=== PATIENT | female | born 1990 | race American Indian/Alaskan Native ===

== ENCOUNTER 2017-02-07 01:11 | Inpatient (IN) | payer BC ==
[~2017-02-07] VITALS: Ht 154.9 cm; Wt 74.1 kg
[2017-02-07 01:49] VITALS: BP 125/73
[2017-02-07 02:35] LABS: AMNI OBC PASS; AMNISURE POSITIVE (NEGATIVE)
[2017-02-07] MEDS ORDERED: D5%-LACTATED RINGERS 1,000 ML IV SCH (02:40)
[2017-02-07] MEDS ORDERED: OXYTOCIN 30U/ 0.9% NaCL 500ML 500 ML IV ONE (02:40)
[2017-02-07] MEDS ORDERED: LACTATED RINGERS 1,000 ML IV SCH (02:40)
[2017-02-07] MEDS ORDERED: LIDOCAINE 1%, 20ML ONE (02:42)
[2017-02-07] MEDS ORDERED: MISOPROSTOL 200 MCG TABLET ONE (02:42)
[2017-02-07] MEDS ORDERED: NEWBORN KIT ONE (02:42)
[2017-02-07] MEDS ORDERED: OXYTOCIN 30U/ 0.9% NaCL 500ML 500 ML ONE (02:43)
[2017-02-07] MEDS ORDERED: TERBUTALINE 1 MG/ML, 1ML IVPush PRN ×2 (03:00)
[2017-02-07] MEDS ORDERED: ONDANSETRON 2MG/ML, 2ML IVPush PRN (03:00)
[2017-02-07] MEDS ORDERED: METOCLOPRAMIDE 5 MG/ML, 2ML IVPush PRN (03:00)
[2017-02-07] MEDS ORDERED: FENTANYL PF 100 MCG/2ML IVPush PRN (03:00)
[2017-02-07] MEDS ORDERED: CALCIUM CARBONATE 500 MG TAB.CHEW PO PRN (03:00)
[2017-02-07] MEDS ORDERED: SODIUM CITRATE/CITRIC ACID 30 ML UDC PO PRN (03:00)
[2017-02-07] MEDS ORDERED: FENTANYL PF 100 MCG/2ML IV PRN (03:00)
[2017-02-07 03:11] LABS: HEMATOCRIT 39.7 % (34.6-47.8); HEMOGLOBIN 13.3 g/dL (11.7-16.4); WHITE BLOOD COUNT 12.5 x10^3/uL (3.4-10)
[2017-02-07] MEDS: OXYTOCIN 30U/ 0.9% NaCL 500ML 500 ML IV SCH ×2 (10:55→20:55)
[2017-02-07] MEDS ORDERED: MISOPROSTOL 200 MCG TABLET PO PRN (11:00)
[2017-02-07] MEDS ORDERED: ONDANSETRON 2MG/ML, 2ML IV PRN (11:00)
[2017-02-07] MEDS: PRENATAL VIT/IRON/FA 1 EACH TABLET PO SCH (11:00)
[2017-02-07] MEDS ORDERED: OXYcodone/APAP 5/325MG TABLET PO PRN ×2 (11:00)
[2017-02-07] MEDS ORDERED: IBUPROFEN 600 MG TABLET ONE (11:27)
[2017-02-07] MEDS: IBUPROFEN 600 MG TABLET PO PRN ×2 (11:48→21:04)
[2017-02-07 13:00] VITALS: BP 113/71
[2017-02-07 16:11] VITALS: BP 119/69
[2017-02-07 19:00] LABS: HEMATOCRIT 40.1 % (34.6-47.8); HEMOGLOBIN 13.4 g/dL (11.7-16.4); WHITE BLOOD COUNT 18.3 x10^3/uL (3.4-10)
[2017-02-07 21:00] VITALS: BP 119/80
[2017-02-08 01:27] VITALS: BP 112/66
[2017-02-08] MEDS ORDERED: IBUP-1222 PO (04:31)
[2017-02-08 06:23] VITALS: BP 110/66
[2017-02-08 08:10] VITALS: BP 120/68
[2017-02-08] MEDS: PRENATAL VIT/IRON/FA 1 EACH TABLET PO SCH (10:24)
[2017-02-08] MEDS: IBUPROFEN 600 MG TABLET PO PRN (10:24)
[2017-02-08 12:00] VITALS: BP 112/78
== END 2017-02-08 14:05 | disposition home or self-care (01) | DRG 775 ==
LOC: LDOP 01:11 → LDIP 02:41 → 2NW 12:32
PROVIDERS: ADMIT Obstetrics & Gynecology; ATTEND Obstetrics & Gynecology
PROC: 10E0XZZ Delivery of Products of Conception, External Approach (ICD-10-PCS; principal; 2017-02-07)
PROC: 0KQM0ZZ Repair Perineum Muscle, Open Approach (ICD-10-PCS; 2017-02-07)
DX: O62.3 Precipitate labor (principal); O69.81X0 Labor and delivery complicated by cord around neck, without compression, not applicable or unspecified; O70.1 Second degree perineal laceration during delivery; Z3A.39 39 weeks gestation of pregnancy; Z37.0 Single live birth
CPT/HCPCS: 36415; 84112; 85025; 86850; 86900; 89060; J2590; J7120; Q0114

== ENCOUNTER 2017-02-16 12:10 | Emergency (ER) | payer BC ==
[~2017-02-16] VITALS: Ht 154.9 cm; Wt 66.0 kg
[~2017-02-16 12:10] MED LIST: IBUP-1222 PO
[2017-02-16] MEDS ORDERED: SODIUM CHLORIDE FLUSH 10ML SYR IVF ONE (13:30)
[2017-02-16 14:11] LABS: WHITE BLOOD COUNT 12.5 x10^3/uL (3.4-10)
[2017-02-16 14:21] LABS: ASPARTATE AMINO TRANSFERASE 17 U/L (15-37); BLOOD UREA NITROGEN 15 mg/dL (7-18)
[2017-02-16] MEDS ORDERED: KETOROLAC 30 MG/1 ML IM ONE (16:00)
[2017-02-16] MEDS ORDERED: KETOROLAC 30 MG/1 ML ONE (16:13)
[2017-02-16 16:19] VITALS: BP 115/74
== END 2017-02-16 18:23 | disposition home or self-care (01) ==
LOC: ED 15:51
DX: M54.5 Low back pain (principal); M25.551 Pain in right hip; M25.552 Pain in left hip
CPT/HCPCS: 36415; 72190; 76830; 76882; 80053; 81001; 85025; 85651; 87086; 96372; 99285; J1885